=== PATIENT | female | born 2000 | race Caucasian/White ===

== ENCOUNTER → 2023-07-12 08:50 | Outpatient (CLI) | payer OTHER, SELFPAY ==
[2023-07-12 11:12] LABS: Urine Chlamydia NOT DETECTED; Urine N gonorrhoeae NOT DETECTED
[2023-07-12 11:32] LABS: HIV 1 & 2 Ab/Ag 4th Gen Combo NEGATIVE (NEGATIVE); Hep C Virus Ab w/Reflex Quant NEGATIVE s/c (NEGATIVE)
[2023-07-13 06:20] LABS: RPR Screen Non Reactive (Non Reactive)
[2023-07-15 07:08] LABS: Hepatitis B Virus DNA HBV DNA not detected IU/mL (.)
[2023-07-17 11:15] LABS: HSV 1 DNA Negative (Negative); HSV 2 DNA Negative (Negative)
== END ==
PROVIDERS: Referring Provider Student in an Organized Health Care Education/Training Program; Visit Provider Student in an Organized Health Care Education/Training Program
DX: Z20.2 Contact with and (suspected) exposure to infections with a predominantly sexual mode of transmission (principal)
CPT/HCPCS: 36415; 86592; 86803; 87389; 87491; 87517; 87529; 87591

== ENCOUNTER 2023-08-14 10:19 | Emergency (ER) | payer OTHER, SELFPAY ==
[2023-08-14] VITALS (9 sets, daily range): BP systolic 102–133; BP diastolic 57–78; PULSE 52–83; RESP 17; TEMP 36.6; O2SAT 97–100; BMI 29.2
[2023-08-14 10:42] LABS: Add Manual Diff / Slide Review NO; Basophils Absolute Auto 100 /uL (0-100); Basophils Percent Auto 0.9 % (0-2); Eosinophils Absolute Auto 0 /uL (0-450); Eosinophils Percent Auto 0.5 % (2-4); Hematocrit 40.7 % (36-46); Hemoglobin 14.1 g/dL (12.0-16.0); Lymphocytes Absolute Auto 2300 /uL (1100-4500); Lymphocytes Percent Auto 25.1 % (25-40); Mean Corpuscular HGB Conc 34.7 % (30-36); Mean Corpuscular Hemoglobin 30.2 PG (26-34); Monocytes Absolute Auto 600 /uL (0-900); Monocytes Percent Auto 6.9 % (3-14); Neutrophils Absolute Auto 6100 /uL (1500-7000); Neutrophils Percent Auto 66.6 % (50-75); Platelet Count 263 X10^3/uL (150-400); Red Blood Cell Count 4.68 X10^6/uL (4.0-5.2); Red Cell Distribution Width 13.4 % (11.6-14.8); White Blood Cell Count 9.1 X10^3/uL (4.5-11.0)
[2023-08-14 10:56] LABS: Alanine Aminotransferase 15 IU/L (<35); Albumin 4.3 g/dL (3.5-5.0); Albumin Globulin Ratio 1.4 (1.0-2.8); Alkaline Phosphatase 56 U/L (38-126); Aspartate Aminotransferase 18 IU/L (14-36); BUN Creatinine Ratio 15.2 (6-22); Bilirubin Total 0.5 mg/dL (0.2-1.3); Blood Urea Nitrogen 12 mg/dL (7-17); Calcium 9.6 mg/dL (8.4-10.2); Carbon Dioxide 27 mmol/L (22-32); Chloride 101 mmol/L (98-107); Estimated Glomerular Filt Rate > 60 mL/min (>60); Glucose 97 mg/dL (70-100); HEMOLYSIS < 15 (0-50); Lipase 53 U/L (23-300); Potassium 3.9 mmol/L (3.4-5.1); Sodium 135 mmol/L (137-145); Total Protein 7.3 g/dL (6.3-8.2)
--- NOTE | 2023-08-14 10:57 | ED_ITS ---
HPI - Abdominal Pain General Chief Complaint: Abdominal Pain Stated Complaint: lower L ab increasing pain/T-3/V/D/C Time Seen by Provider: 08/14/23 10:48 Source: patient Mode of arrival: Ambulatory History of Present Illness HPI narrative: Patient here, sent from walk-in clinic for left lower quadrant pain since this past Sunday, 4 days ago. It is sharp pain waxes and wanes. Rates to the back. Has had nausea and vomiting. No fever chills. No urinary complaints. No diarrhea. Patient denies any ovarian cysts or ovarian problems in the past. Denies any past abdominal surgical history. There is family history of appendicitis left side pain. LMP 15 days ago. Denies . Related Data Home Medications Medication Instructions Recorded Confirmed No Known Home Medications 08/14/23 08/14/23 Allergies Allergy/AdvReac Type Severity Reaction Status Date / Time No Known Drug Allergies Allergy Verified 08/14/23 10:30 Review of Systems Review of Systems Narrative: GENERAL: negative chills, fatigue, malaise, fever, sweats. HEENT: negative sinus pain, ear pain, sore throat RESPIRATORY: negative dyspnea, cough CARDIOVASCULAR: negative chest pain, palpitations GASTROINTESTINAL: Positive nausea, vomiting, abdominal pain : negative dysuria, frequency, hematuria MUSCULOSKELETAL: negative muscle or bony pain SKIN: negative rash, skin lesions NEUROLOGIC: negative weakness, numbness ROS Unobtainable: All systems reviewed & are unremarkable except as noted in HPI and below Patient History Social History Smoking Status: Never smoker Smoking Status: Never smoker alcohol intake frequency: 0-2 drinks per day Substance Use Type: does not use Exam Narrative Exam Narrative: GENERAL: in no distress, not toxic not dyspneic HEAD: Normocephalic. EYES: Pupils equal round ENT: Mucous membranes moist. NECK: Trachea midline. CARDIOVASCULAR: Regular rate and rhythm RESPIRATORY: Clear to auscultation. Breath sounds equal bilaterally. No wheezes, rales, or rhonchi. GASTROINTESTINAL: Abdomen soft, flat, mild left lower quadrant tenderness. No peritoneal signs. No right lower quadrant tenderness. No McBurney point tenderness. No rebound tenderness. No pain out of proportion to exam. No CVA tenderness bowel sounds are present. EXTREMITIES: No gross deformities. BACK: No flank tenderness. NEURO: AOx4. SKIN: Warm and dry PSYCH: Not anxious, is cooperative Initial Vital Signs Initial Vital Signs: Vital Signs Temperature 97.9 F 08/14/23 10:20 Pulse Rate 77 08/14/23 10:20 Respiratory Rate 17 08/14/23 10:20 Blood Pressure 133/73 08/14/23 10:20 Pulse Oximetry 100 08/14/23 10:20 Oxygen Delivery Method Room Air 08/14/23 10:20 Course Orders Ordered: ED Orders 08/14/23 10:31 Complete Blood Count AUTO DIFF Stat Comprehensive Metabolic Panel Stat Lipase Stat 08/14/23 11:13 CT abdomen pelvis w con Stat 08/14/23 12:06 Urine Culture Stat Urine Microscopic Stat Discontinued Medications Sodium Chloride (Normal Saline 0.9%) 500 mls @ 1,000 mls/hr IV BOLUS ONE Stop: 08/14/23 11:24 Last Infusion: 08/14/23 11:49 Dose: Infused Documented By: Admin: 08/14/23 11:22 Dose: 1,000 mls/hr Documented By: AMNathaniel Ondansetron HCl (Ondansetron 4 Mg Odt) 4 mg PO NOW PRN PRN Reason: Nausea And Vomiting Ondansetron HCl (Ondansetron 4 Mg/2 Ml Inj) 4 mg IV NOW PRN PRN Reason: Nausea And Vomiting Vital Signs Vital signs: Vital Signs - 8 hr 08/14/23 10:20 08/14/23 10:26 08/14/23 10:30 Temperature 97.9 F Pulse Rate 77 76 Respiratory Rate 17 Blood Pressure 133/73 123/73 Pulse Oximetry 100 100 Oxygen Delivery Method Room Air 08/14/23 10:30 08/14/23 11:00 08/14/23 11:00 Temperature Pulse Rate 69 63 Respiratory Rate Blood Pressure 123/71 Pulse Oximetry 100 100 Oxygen Delivery Method 08/14/23 11:30 08/14/23 12:04 08/14/23 12:05 Temperature Pulse Rate 75 83 59 L Respiratory Rate Blood Pressure Pulse Oximetry 99 99 99 Oxygen Delivery Method 08/14/23 12:05 08/14/23 12:30 08/14/23 12:30 Temperature Pulse Rate 52 L Respiratory Rate Blood Pressure 120/78 113/61 Pulse Oximetry 99 Oxygen Delivery Method 08/14/23 13:00 08/14/23 13:00 Temperature Pulse Rate 63 Respiratory Rate Blood Pressure 102/57 L Pulse Oximetry 97 Oxygen Delivery Method MDM - Abdominal Pain Lab Data 08/14/23 10:31 08/14/23 10:31 Labs: Lab Results 08/14/23 08/14/23 Range/Units 10: 12:06 WBC 9.1 (4.5-11.0) X10^3/uL RBC 4.68 (4.0-5.2) X10^6/uL Hgb 14.1 (12.0-16.0) g/dL Hct 40.7 (36-46) % MCV 87.0 (80-100) fL MCH 30.2 (26-34) PG MCHC 34.7 (30-36) % RDW 13.4 (11.6-14.8) % Plt Count 263 (150-400) X10^3/uL Neut % (Auto) 66.6 (50-75) % Lymph % (Auto) 25.1 (25-40) % [place] % (Auto) 6.9 (3-14) % Eos % (Auto) 0.5 L (2-4) % Baso % (Auto) 0.9 (0-2) % Neut # (Auto) 6100 (3523-2462) /uL Lymph # (Auto) 2300 (1094-5639) /uL [place] # (Auto) 600 (0-900) /uL Eos # (Auto) 0 (0-450) /uL Baso # (Auto) 100 (0-100) /uL Sodium 135 L (137-145) mmol/L Potassium 3.9 (3.4-5.1) mmol/L Chloride 101 (98-107) mmol/L Carbon Dioxide 27 (22-32) mmol/L BUN 12 (7-17) mg/dL Creatinine 0.79 (0.52-1.04) mg/dL Estimated GFR > 60 (>60) mL/min BUN/Creatinine Ratio 15.2 (6-22) Glucose 97 (70-100) mg/dL Calcium 9.6 (8.4-10.2) mg/dL Total Bilirubin 0.5 (0.2-1.3) mg/dL AST 18 (14-36) IU/L ALT 15 (<35) IU/L Alkaline Phosphatase 56 (38-126) U/L Total Protein 7.3 (6.3-8.2) g/dL Albumin 4.3 (3.5-5.0) g/dL Globulin 3.0 (1.7-4.1) g/dL Albumin/Globulin Ratio 1.4 (1.0-2.8) Lipase 53 (23-300) U/L Urine RBC 1-5/hpf (0-5/HPF) Urine WBC 1-5/hpf (0-5/HPF) Ur Squamous Epith Cells 1-5 /hpf (0-5/HPF) Urine Bacteria None seen (None) Ur Culture Indicated? Specimen cultured Point of care testing: Point of Care Testing Test Results Negative Urine Dip Bedside Urine Glucose Negative Bedside Urine Bilirubin - Negative Bedside Urine Ketone - Negative Urine Specific [place] 1.010 Bedside Urine Occult Blood +/- Bedside Urine pH 8.0 Bedside Urine Protein - Negative Bedside Urine Urobilinogen - Negative Bedside Urine Nitrite - Negative Bedside Urine Leukocytes +/- [address] scan - abdomen/pelvis: Radiologist's Impression: [place] [address] CT Scan Report Signed Patient: Tianna Moore MR#: [id number] : 2000 Acct:[id number] Age/Sex: 23 / F Date of Service: 08/14/23 Loc: ED Accession Number: [id number] Procedure: CT abdomen pelvis w con Ordering Provider: Geovanny Kim MD PROCEDURE: CT ABDOMEN PELVIS W CON INDICATIONS: IV contrast only/left lower quadrant pain TECHNIQUE: After the administration of IV contrast, axial sections were acquired from the lung bases to the pubic symphysis. Coronal and sagittal reformats were performed. For radiation dose reduction, the following was used: automated exposure control, adjustment of mA and/or kV according to patient size. COMPARISON: None. FINDINGS: Image quality: Excellent. Lung bases: Unremarkable. Heart: No significant findings. ABDOMEN: Liver: Unremarkable. Gallbladder: Unremarkable. Biliary ducts: Unremarkable. Pancreas: Unremarkable. Spleen: Unremarkable. Adrenal Glands: Unremarkable. Kidneys and Ureters: Unremarkable. Stomach and Bowel: In this patient with this given history, scrutiny is given to the left lower quadrant of the abdomen. The sigmoid colon is within normal limits. No significant left lower quadrant inflammatory change can be seen. Stomach, small bowel loops, and colon are unremarkable. A normal appendix is noted. Peritoneum: No abnormal intraperitoneal fluid. No free air. Ventral Wall: No hernia. Abdominal Nodes: No retroperitoneal or mesenteric adenopathy by size criteria. Vessels: Aorta and inferior vena cava are normal in size. PELVIS: Pelvic Organs: The uterus appears normal for age. Physiologic appearing cystic changes can be seen of the ovaries. No adnexal masses are seen. Bladder: Unremarkable. Pelvic Nodes: No enlarged lymph nodes. Miscellaneous: No inguinal hernias are seen. Bones: Unremarkable. IMPRESSION: Normal-appearing sigmoid colon. No focal left lower quadrant inflammatory change is seen. Additional findings: Normal appendix Dictated by: Rico Camacho M.D. on 08/14/2023 at 10:20 Approved by: Rico Camacho M.D. on 08/14/2023 at 10:25 [facility] Narrative Medical decision making narrative: Patient here, sent from walk-in clinic for left lower quadrant pain since this past Sunday, 4 days ago. It is sharp pain waxes and wanes. Rates to the back. Has had nausea and vomiting. No fever chills. No urinary complaints. No diarrhea. Patient denies any ovarian cysts or ovarian problems in the past. Denies any past abdominal surgical history. There is family history of appendicitis left side pain. LMP 15 days ago. Denies . After history and exam CBC CMP urinalysis test normal saline Zofran CT abdomen pelvis [facility] CC: Left lower quadrant pain Complicating co-morbidities: None Data collected from: Patient Medical records reviewed: Walk-in clinic visit prior to arrival Differential considered: Includes but not limited to appendicitis diverticulitis kidney stone pyelonephritis ovarian cyst ovarian torsion Exam documented above, pertinent findings include: Mild left lower quadrant tenderness Lab Test results independently reviewed as above. Pertinent findings: WBC 9.1 sodium 135 potassium 3.9 AST 18 ALT 15 Urinalysis WBC 1-5 negative nitrite Imaging studies independently reviewed: CT abdomen and pelvis normal appendix no acute finding Treatments: Zofran normal saline Re-evaluations: 12:55 p.m.. Patient resting comfortably no distress. Not requiring pain medication. She does not want any medication for discomfort. She is in no distress. Exam and laboratory studies and imaging are reassuring. Return precautions reviewed with her. She is comfortable with this plan. Primary care referral given. Work note provided. Discussion: Appropriate for discharge home. Exam is reassuring as well as laboratory studies and imaging. No prescriptions indicated this time. Return precautions reviewed with her. She desires discharge home. At this time uncertain source of abdominal pain but likely clinically not ovarian torsion or cyst. Diagnosis: Abdominal pain Discharge Plan Departure Patient Disposition: Home Clinical Impression: Abdominal pain Instructions: DI for Abdominal Pain-Adult Activity Restrictions/Additional Instructions: See family doctor in a week for re-evaluation. Call provided primary care referral phone number to establish family doctor. Call [phone]. May continue ibuprofen or Tylenol for pain. Work note has been provided for you. Return if worse if any questions or concerns Prescriptions: No Action No Known Home Medications Referrals: Miscellaneous,Doctor, MD [Primary Care Provider] - Stand Alone Forms: Patient Portal/API, Work Release Note
--- NOTE | 2023-08-14 11:13 | DI.CT.S_ITS ---
PROCEDURE: CT ABDOMEN PELVIS W CON INDICATIONS: IV contrast only/left lower quadrant pain TECHNIQUE: After the administration of IV contrast, axial sections were acquired from the lung bases to the pubic symphysis. Coronal and sagittal reformats were performed. For radiation dose reduction, the following was used: automated exposure control, adjustment of mA and/or kV according to patient size. COMPARISON: None. FINDINGS: Image quality: Excellent. Lung bases: Unremarkable. Heart: No significant findings. ABDOMEN: Liver: Unremarkable. Gallbladder: Unremarkable. Biliary ducts: Unremarkable. Pancreas: Unremarkable. Spleen: Unremarkable. Adrenal Glands: Unremarkable. Kidneys and Ureters: Unremarkable. Stomach and Bowel: In this patient with this given history, scrutiny is given to the left lower quadrant of the abdomen. The sigmoid colon is within normal limits. No significant left lower quadrant inflammatory change can be seen. Stomach, small bowel loops, and colon are unremarkable. A normal appendix is noted. Peritoneum: No abnormal intraperitoneal fluid. No free air. Ventral Wall: No hernia. Abdominal Nodes: No retroperitoneal or mesenteric adenopathy by size criteria. Vessels: Aorta and inferior vena cava are normal in size. PELVIS: Pelvic Organs: The uterus appears normal for age. Physiologic appearing cystic changes can be seen of the ovaries. No adnexal masses are seen. Bladder: Unremarkable. Pelvic Nodes: No enlarged lymph nodes. Miscellaneous: No inguinal hernias are seen. Bones: Unremarkable. IMPRESSION: Normal-appearing sigmoid colon. No focal left lower quadrant inflammatory change is seen. Additional findings: Normal appendix Dictated by: Rico Camacho M.D. on 08/14/2023 at 10:20 Approved by: Rico Camacho M.D. on 08/14/2023 at 10:25
[2023-08-14] MEDS: SODIUM CHLORIDE 0.9% 500 ML 1000 ML IV (11:22)
[2023-08-14 12:19] LABS: Bacteria Urine None Seen; Culture Indicated Urine Specimen Cultured; RBC Urine 1-5/HPF (0-5/HPF); Squamous Epithelial Cell Urine 1-5 /HPF (0-5/HPF); WBC Urine 1-5/HPF (0-5/HPF)
== END 2023-08-14 13:20 | disposition home or self-care (01) ==
PROVIDERS: Emergency Provider Emergency Medicine
DX: R10.32 Left lower quadrant pain (principal); R11.2 Nausea with vomiting, unspecified
CPT/HCPCS: 36415; 74177; 80053; 81003; 81015; 81025; 83690; 85025; 87077; 87086; 87186; 99284; Q9967

== ENCOUNTER 2023-08-18 21:54 | Emergency (ER) | payer OTHER, SELFPAY ==
[2023-08-18 22:04] VITALS: BP 139/92; PULSE 85; RESP 16; TEMP 37.1; O2SAT 100; BMI 29.2
--- NOTE | 2023-08-18 22:08 | DI.US.S_ITS ---
PROCEDURE: US RENAL COMPLETE INDICATIONS: LEFT FLANK PAIN TECHNIQUE: Real-time scanning was performed of the kidneys and bladder, with image documentation. COMPARISON: None. FINDINGS: Kidneys: Kidneys are normal in size. Right kidney measures 10.4 cm long; left kidney measures 10.9 cm long. Right renal cortical thickness is 1.2 cm; left renal cortical thickness is 1.8 cm. In the superior posterior right renal cortex, there is a focal echogenicity measuring 7 x 5 mm. No hydronephrosis or nephrolithiasis. No suspicious solid mass lesions. Bladder: Pre-void bladder volume is 67 mL. Post-void residual is 0 mL. Pre-void images demonstrate no intraluminal masses or stones. On pre-void images, left ureteral jets are noted with color Doppler interrogation. (Of note, ureteral jets may not be detectable in up to 25% of cases due to insufficient differences in specific gravity between ureteral and bladder urine). Miscellaneous: No free pelvic fluid. 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 No hydronephrosis bilaterally Approved by: Mau Art M.D. on 08/18/2023 at 22:11
--- NOTE | 2023-08-18 22:08 | DI.US.S_ITS ---
PROCEDURE: US PELVIC COMPLETE INDICATIONS: LEFT ADNEXAL PAIN TECHNIQUE: Real-time scanning was performed of the pelvic organs, with image documentation. Additional endovaginal scanning was necessary due to incomplete visualization of the adnexal and endometrial structures by transabdominal scanning. COMPARISON: None. FINDINGS: Uterus: Uterus is anteverted and normal in size at 7.7 x 4.2 x 3.2 cm. The myometrium is homogeneous. The endometrium measures 11.9 mm combined thickness. Complex endometrial fluid noted Ovaries: The right ovary measures 4.3 x 3.0 x 2.7 cm, with a calculated ovarian volume of 18.1 cc. The left ovary measures 4.3 x 3.1 x 2.4 cm, with a calculated ovarian volume of 13.4 cc. The ovaries have a normal sonographic appearance. Both ovaries have greater than 12 follicles. Appropriate varying vasculature present. No adnexal masses are seen. Other: No pathologic free abdominal or pelvic fluid. IMPRESSION: Multiple ovarian follicles number greater than 12. This finding has been correlated with polycystic ovarian syndrome in the proper clinical setting. No evidence of ovarian torsion Approved by: Mau Art M.D. on 08/18/2023 at 22:36
--- NOTE | 2023-08-18 22:11 | ED_ITS ---
HPI - Back Pain/Injury General Chief Complaint: Back Pain/Injury Stated Complaint: back/abd pain x7 days Time Seen by Provider: 08/18/23 21:57 Source: patient Mode of arrival: Ambulatory Limitations: no limitations History of Present Illness HPI Narrative: Patient is a 23-year-old female. She was seen here in the emergency department approximately 4 days ago for similar symptoms to what she presents with today. She states the pain is more intense today. It is on her left abdomen and left flank. She denies any urinary symptoms, vaginal bleeding or change in GI symptoms. Has not had any vomiting. No fevers. No skin changes. She states that her back does hurt to touch. It does not radiate down into her legs. She states the pain today is worse than what it was a couple days ago. She was here couple days ago she did have a fairly extensive workup to include labs and a CT scan which were unremarkable. She thinks that after she was discharged home her symptoms did improve but now is worse. Related Data Previous Rx's Medication Instructions Recorded cyclobenzaprine 10 mg tablet 10 mg PO TID PRN muscle spasm #10 08/19/23 tabs Allergies Allergy/AdvReac Type Severity Reaction Status Date / Time No Known Drug Allergies Allergy Verified 08/18/23 22:08 Review of Systems Constitutional Constitutional: Reports system reviewed and no additional complaints, except as documented Cardiovascular Cardiovascular: Reports system reviewed and no additional complaints, except as documented Respiratory Respiratory: Reports system reviewed and no additional complaints, except as documented Gastrointestinal Gastrointestinal: Reports system reviewed and no additional complaints, except as documented Genitourinary Genitourinary: Reports system reviewed and no additional complaints, except as documented Musculoskeletal Musculoskeletal: Reports system reviewed and no additional complaints, except as documented Integumentary/Breasts Skin/Breast: Reports system reviewed and no additional complaints, except as documented Neurologic Neurologic: Reports system reviewed and no additional complaints, except as documented Hematologic/Lymphatic On Anticoagulants: No Patient History Social History Smoking Status: Never smoker Smoking Status: Never smoker alcohol intake frequency: 0-2 drinks per day Substance Use Type: does not use Exam Initial Vital Signs Initial Vital Signs: Vital Signs Temperature 98.7 F 08/18/23 22:04 Pulse Rate 85 08/18/23 22:04 Respiratory Rate 16 08/18/23 22:04 Blood Pressure 139/92 H 08/18/23 22:04 Pulse Oximetry 100 08/18/23 22:04 Oxygen Delivery Method Room Air 08/18/23 22:04 Const General: cooperative, comfortable and No ill appearing HENMT Head: normal to inspection and normocephalic Resp Effort & Inspection: normal respiratory effort Cardio Rate: regular rate GI Palpation: soft, No firm, No guarding and tender (Left-sided abdomen) Back/Spine/Pelvis Back: No CVA tenderness Thoracic/Lumbar Spine: paraspinal tenderness (Left-sided lumbar paraspinal), No thoracic spinal tenderness and No lumbar spinal tenderness Skin General: no rashes or lesions noted Neuro General: patient alert, patient awake and moves all extremities Speech: speech normal Extrem General: normal to inspection and capillary refill normal Course Orders Ordered: ED Orders 08/18/23 22:05 Complete Blood Count AUTO DIFF Stat Comprehensive Metabolic Panel Stat Lipase Stat Test Serum,Qual Stat 08/18/23 22:08 US pelvic complete Stat US renal complete Stat 08/18/23 22:40 Urine Culture Stat Urine Microscopic Stat Discontinued Medications Cyclobenzaprine HCl (Cyclobenzaprine 10 Mg Tablet) 10 mg PO NOW ONE Stop: 08/18/23 23:30 Last Admin: 08/18/23 23:35 Dose: 10 mg Documented By: LUIS Hydromorphone HCl (Hydromorphone 1 Mg Inj) 1 mg IV NOW ONE Stop: 08/18/23 22:12 Last Admin: 08/18/23 22:21 Dose: 1 mg Documented By: LUIS Ketorolac Tromethamine (Ketorolac 30 Mg/Ml Vial) 30 mg IV NOW ONE Stop: 08/18/23 23:30 Last Admin: 08/18/23 23:35 Dose: 30 mg Documented By: LUIS Vital Signs Vital signs: Vital Signs - 8 hr 08/18/23 22:04 Temperature 98.7 F Pulse Rate 85 Respiratory Rate 16 Blood Pressure 139/92 H Pulse Oximetry 100 Oxygen Delivery Method Room Air MDM - Back Pain/Injury Medical Records Attestation: I reviewed the patient's medical records. Lab Data Attestation: I reviewed the patient's lab results. 08/18/23 22:05 08/18/23 22:05 Labs: Lab Results 10/14/23 10/14/23 Range/Units 22:05 22:40 WBC 10.4 (4.5-11.0) X10^3/uL RBC 4.71 (4.0-5.2) X10^6/uL Hgb 14.2 (12.0-16.0) g/dL Hct 41.1 (36-46) % MCV 87.1 (80-100) fL MCH 30.2 (26-34) PG MCHC 34.7 (30-36) % RDW 13.3 (11.6-14.8) % Plt Count 253 (150-400) X10^3/uL Neut % (Auto) 71.3 (50-75) % Lymph % (Auto) 18.5 L (25-40) % [place] % (Auto) 9.2 (3-14) % Eos % (Auto) 0.3 L (2-4) % Baso % (Auto) 0.7 (0-2) % Neut # (Auto) 7400 H (4292-1375) /uL Lymph # (Auto) 1900 (1510-9284) /uL [place] # (Auto) 1000 H (0-900) /uL Eos # (Auto) 0 (0-450) /uL Baso # (Auto) 100 (0-100) /uL Sodium 138 (137-145) mmol/L Potassium 3.8 (3.4-5.1) mmol/L Chloride 101 (98-107) mmol/L Carbon Dioxide 27 (22-32) mmol/L BUN 14 (7-17) mg/dL Creatinine 0.87 (0.52-1.04) mg/dL Estimated GFR > 60 (>60) mL/min BUN/Creatinine Ratio 16.1 (6-22) Glucose 105 H (70-100) mg/dL Calcium 9.5 (8.4-10.2) mg/dL Total Bilirubin 0.6 (0.2-1.3) mg/dL AST 24 (14-36) IU/L ALT 14 (<35) IU/L Alkaline Phosphatase 57 (38-126) U/L Total Protein 7.6 (6.3-8.2) g/dL Albumin 4.3 (3.5-5.0) g/dL Globulin 3.3 (1.7-4.1) g/dL Albumin/Globulin Ratio 1.3 (1.0-2.8) Lipase 41 (23-300) U/L Serum , Qual Negative (Negative) Urine RBC None seen (0-5/HPF) Urine WBC 10-30/hpf H (0-5/HPF) Ur Squamous Epith Cells None seen (0-5/HPF) Ur Renal Epithelial Cell 0-1/hpf (0-1/HPF) Urine Bacteria Few (2-10) H (None) Ur Culture Indicated? Specimen cultured Urine Dip Bedside Urine Glucose Negative Bedside Urine Bilirubin - Negative Bedside Urine Ketone - Negative Urine Specific [place] 1.025 Bedside Urine Occult Blood - Negative Bedside Urine pH 6.0 Bedside Urine Protein - Negative Bedside Urine Urobilinogen - Negative Bedside Urine Nitrite - Negative Bedside Urine Leukocytes + 70 Esterase Imaging Data renal US: Radiologist's Impression: PROCEDURE: US RENAL COMPLETE INDICATIONS: LEFT FLANK PAIN TECHNIQUE: Real-time scanning was performed of the kidneys and bladder, with image documentation. COMPARISON: None. FINDINGS: Kidneys: Kidneys are normal in size. Right kidney measures 10.4 cm long; left kidney measures 10.9 cm long. Right renal cortical thickness is 1.2 cm; left renal cortical thickness is 1.8 cm. In the superior posterior right renal cortex, there is a focal echogenicity measuring 7 x 5 mm. No hydronephrosis or nephrolithiasis. No suspicious solid mass lesions. Bladder: Pre-void bladder volume is 67 mL. Post-void residual is 0 mL. Pre- void images demonstrate no intraluminal masses or stones. On pre-void images, left ureteral jets are noted with color Doppler interrogation. (Of note, ureteral jets may not be detectable in up to 25% of cases due to insufficient differences in specific gravity between ureteral and bladder urine). Miscellaneous: No free pelvic fluid. 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 No hydronephrosis bilaterally US - DEPUTY PROGRAM MANAGER: Radiologist's Impression: PROCEDURE: US PELVIC COMPLETE INDICATIONS: LEFT ADNEXAL PAIN TECHNIQUE: Real-time scanning was performed of the pelvic organs, with image documentation. Additional endovaginal scanning was necessary due to incomplete visualization of the adnexal and endometrial structures by transabdominal scanning. COMPARISON: None. FINDINGS: Uterus: Uterus is anteverted and normal in size at 7.7 x 4.2 x 3.2 cm. The myometrium is homogeneous. The endometrium measures 11.9 mm combined thickness. Complex endometrial fluid noted Ovaries: The right ovary measures 4.3 x 3.0 x 2.7 cm, with a calculated ovarian volume of 18.1 cc. The left ovary measures 4.3 x 3.1 x 2.4 cm, with a calculated ovarian volume of 13.4 cc. The ovaries have a normal sonographic appearance. Both ovaries have greater than 12 follicles. Appropriate varying vasculature present. No adnexal masses are seen. Other: No pathologic free abdominal or pelvic fluid. IMPRESSION: Multiple ovarian follicles number greater than 12. This finding has been correlated with polycystic ovarian syndrome in the proper clinical setting. No evidence of ovarian torsion MDM Narrative Medical decision making narrative: Patient has not having any urinary symptoms so despite the white blood cell from the bacteria in her urine I have low suspicion that she has a urinary tract infection or that an infection is causing her symptoms today. I have low suspicion for pyelonephritis. We will wait for the urine culture to resolve before treating any antibiotics and I did discuss this with her. She had a CT scan done just 4 days ago which was unremarkable. I do not feel that we need to repeat that today. She is no skin changes over the area concerning for zoster. She does have multiple follicles on her ovaries however she is no diagnosis of PCOS. She is not having any vaginal bleeding and I also have a hard time thinking that this is what is causing her pain today as well. Her test is negative. Low suspicion that this is sciatic pain she is no radicular symptoms to her lower extremities. She is no fevers. She also has a reproducible pain with palpation to the paraspinal muscles in her lumbar region so I feel that renal colic is unlikely as well. I would a long discussion with her regarding her symptoms. Will send home with a prescription for muscle relaxers. Short course of pain medication. We discussed the purchase of lidocaine patches [id number]. 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 She understands she needs to make contact with the primary care doctor for a follow-up. Discharge Plan Departure Patient Disposition: Home Clinical Impression: Lower back pain, Lower abdominal pain Instructions: DI for Low Back Pain Activity Restrictions/Additional Instructions: A urine culture was pending at the time of your discharge and we will contact you if we need to start any antibiotics. I also recommend that you continue with a conservative measures such as heat and stretching and massage. You can also purchase lidocaine patches [id number] see if this helps your symptoms. You do need follow-up with regional company flatbed truck driver. You can contact them with the number provided below to discuss follow-up. Prescriptions: New cyclobenzaprine 10 mg tablet 10 mg PO TID PRN (Reason: muscle spasm) Qty: 10 0RF Referrals: Kelly Allred MD [Physician] - Miscellaneous,DoctorMD [Primary Care Provider] - Stand Alone Forms: Patient Portal/API
[2023-08-18] MEDS: HYDROMORPHONE 1 MG INJ IV (22:21)
[2023-08-18 22:25] LABS: Add Manual Diff / Slide Review NO; Basophils Absolute Auto 100 /uL (0-100); Basophils Percent Auto 0.7 % (0-2); Eosinophils Absolute Auto 0 /uL (0-450); Eosinophils Percent Auto 0.3 % (2-4); Hematocrit 41.1 % (36-46); Hemoglobin 14.2 g/dL (12.0-16.0); Lymphocytes Absolute Auto 1900 /uL (1100-4500); Lymphocytes Percent Auto 18.5 % (25-40); Mean Corpuscular HGB Conc 34.7 % (30-36); Mean Corpuscular Hemoglobin 30.2 PG (26-34); Mean Corpuscular Volume 87.1 fL (80-100); Monocytes Absolute Auto 1000 /uL (0-900); Monocytes Percent Auto 9.2 % (3-14); Neutrophils Absolute Auto 7400 /uL (1500-7000); Neutrophils Percent Auto 71.3 % (50-75); Platelet Count 253 X10^3/uL (150-400); Red Blood Cell Count 4.71 X10^6/uL (4.0-5.2); Red Cell Distribution Width 13.3 % (11.6-14.8); White Blood Cell Count 10.4 X10^3/uL (4.5-11.0)
[2023-08-18 22:34] LABS: Pregnancy Test Serum,Qual Negative (Negative)
[2023-08-18 22:36] LABS: Alanine Aminotransferase 14 IU/L (<35); Albumin 4.3 g/dL (3.5-5.0); Albumin Globulin Ratio 1.3 (1.0-2.8); Alkaline Phosphatase 57 U/L (38-126); Aspartate Aminotransferase 24 IU/L (14-36); BUN Creatinine Ratio 16.1 (6-22); Bilirubin Total 0.6 mg/dL (0.2-1.3); Blood Urea Nitrogen 14 mg/dL (7-17); Calcium 9.5 mg/dL (8.4-10.2); Carbon Dioxide 27 mmol/L (22-32); Chloride 101 mmol/L (98-107); Estimated Glomerular Filt Rate > 60 mL/min (>60); Globulin 3.3 g/dL (1.7-4.1); Glucose 105 mg/dL (70-100); HEMOLYSIS < 15 (0-50); Lipase 41 U/L (23-300); Potassium 3.8 mmol/L (3.4-5.1); Sodium 138 mmol/L (137-145); Total Protein 7.6 g/dL (6.3-8.2)
[2023-08-18 23:30] LABS: RBC Urine None Seen (0-5/HPF)
[2023-08-18 23:31] LABS: Bacteria Urine Few (2-10); Culture Indicated Urine Specimen Cultured; Renal Epithelial Cells Urine 0-1/HPF (0-1/HPF); Squamous Epithelial Cell Urine None Seen (0-5/HPF); WBC Urine 10-30/HPF (0-5/HPF)
[2023-08-18] MEDS: CYCLOBENZAPRINE 10 MG TABLET PO (23:35)
[2023-08-18] MEDS: KETOROLAC 30 MG/ML VIAL IV (23:35)
[2023-08-19] MEDS: TRAMADOL 50 MG PREPACK 1 BOTTLE MISC (00:04)
[2023-08-19] MEDS: CYCLOBENZAPRINE 10 MG PREPACK 1 BOTTLE MISC (00:04)
[2023-08-19 00:34] VITALS: BP 135/74; PULSE 90; RESP 18; O2SAT 96
== END 2023-08-19 00:35 | disposition home or self-care (01) ==
PROVIDERS: Emergency Provider Emergency Medicine
DX: M54.50 Low back pain, unspecified (principal); R10.30 Lower abdominal pain, unspecified
CPT/HCPCS: 36415; 76770; 76830; 76856; 80053; 81003; 81015; 83690; 84703; 85025; 87077; 87086; 87186; 93975; 96374; 96375; 99284; J1170; J1885